=== PATIENT | female | born 1940 | race Caucasian/White ===

== ENCOUNTER 2018-07-22 05:34 | Inpatient (IN) ==
--- NOTE | 2018-07-22 06:13 | PROVIDER DOCUMENTATION ---
HPI-General Adult - General Chief Complaint: Allergic Reaction Stated Complaint: nausea from meds for staff infection Time Seen by Provider: 07/22/18 05:45 Source: patient Allergies/Adverse Reactions: Patient Allergies Allergy/AdvReac Type Severity Reaction Status Date / Time Sulfa (Sulfonamide Allergy Unknown Verified 05/24/18 09:49 Antibiotics) [Sulfa(Sulfonamide Antibiotics)] Home Medications: Home Medication List Medication Instructions Recorded Confirmed Last Taken Type Lamotrigine [Lamictal] 200 mg PO BID 02/10/12 07/14/18 07/14/18 History Levetiracetam E.r. [Keppra Xr] 500 mg PO BID 02/10/12 07/14/18 07/14/18 History Amlodipine [Norvasc] 10 mg PO DAILY #30 tablet 02/11/12 07/14/18 07/14/18 Rx Gabapentin [Neurontin] 800 mg PO BID 01/14/13 07/14/18 07/14/18 History Prednisone 10 mg PO DAILY 08/13/14 07/14/18 07/14/18 History Fluticasone/Salmeterol [Advair 1 puff IH BID 08/23/14 07/14/18 07/14/18 History 250-50 Diskus] Metformin [Glucophage] 500 mg PO TID 08/23/14 07/14/18 07/14/18 History Hydroxychloroquine [Plaquenil] 200 mg PO BID 08/02/15 07/14/18 07/14/18 History Nabumetone [Relafen] 750 mg PO BID 08/02/15 07/14/18 07/14/18 History Aspirin [Lo-Dose Aspirin EC] 81 mg PO DAILY 09/01/16 07/14/18 07/14/18 History Clonazepam [Klonopin] 0.5 mg PO 4XDAY 09/01/16 07/14/18 07/14/18 History Escitalopram [Lexapro] 20 mg PO DAILY 09/01/16 07/14/18 07/14/18 History Fluticasone 50 Mcg Nasal [place] 1 spray YAIR DAILY 09/01/16 07/14/18 07/14/18 History [Flonase] Folic Acid 1 mg PO DAILY 09/01/16 07/14/18 07/14/18 History Losartan [Cozaar] 50 mg PO DAILY 09/01/16 07/14/18 07/14/18 History Acetaminophen 500 mg PO 4XDAY PRN PRN 7 Days #30 04/23/18 07/14/18 07/14/18 Rx tab Tramadol [Ultram] 50 mg PO Q8HR PRN 5 Days #15 tablet 04/23/18 07/14/18 07/14/18 Rx Ketorolac 0.5% Ophth Soln [Acular 1 drp LEFT EYE 4XDAY PRN PRN #1 05/05/18 07/14/18 07/14/18 Rx 0.5% Ophth Soln] bottle Methotrexate 2.5 mg PO DIRECTED 05/24/18 07/14/18 07/11/18 History Hydrocodone/Acetaminophen [[place] 1 ea PO Q6H PRN PRN #6 tab 06/27/18 07/14/18 07/14/18 Rx 5-325 Tablet] Clindamycin [Cleocin] 150 mg PO Q6HR #30 cap 07/14/18 Unknown Rx Doxycycline [Vibramycin] 100 mg PO BID 07/14/18 07/14/18 Unknown History - History of Present Illness -Gen Adult Nature of Presenting Problems: Pt presents with ap, diffuse, comes and goes, pt was seen here approximately one week ago and diagnosed with abdominal wall cellulitis and started on abx, pt now feels weak, nausea, pt is poor historian and is unable to articulate why she decided to come to the ED, pt denies f/c, lawrence, cp, sob, cough, vomiting, diarrhea, pt is lying in bed in no acute distress. Location of Pain/Injury: reports: abdomen Pain Radiation: reports: no radiation Quality of Pain: reports: sharp Severity: reports: moderate Onset/Duration: reports: 6 days ago Timing: reports: still present Context/Activities at Onset: reports: none Modifying Factors: improves with: nothing Associated Symptoms: reports: nausea, weakness Similar Symptoms Previously?: Yes Recently seen or treated by another doctor?: Yes Review of Systems - Adult - REVIEW OF SYSTEMS - ADULT Constitutional: reports: no symptoms reported Eyes: reports: no symptoms reported Ears, Nose, Mouth & Throat: reports: no symptoms reported Cardiovascular: reports: no symptoms reported Respiratory: reports: no symptoms reported Gastrointestinal: reports: see HPI Genitourinary: reports: no symptoms reported Musculoskeletal: reports: no symptoms reported Integumentary: reports: no symptoms reported Neurological: reports: no symptoms reported Psychiatric: reports: no symptoms reported Endocrine: reports: no symptoms reported Hematologic/Lymphatic: reports: no symptoms reported Allergic/Immunologic: reports: no symptoms reported All Other Systems: Reviewed and Negative Past History - Adult - PAST MEDICAL HISTORY-ADULT Review of Records: reports: Old Records Reviewed, Nursing Assessment Review, Medications Reviewed, Social history reviewed & non-contributory. Major Childhood Illnesses: reports: denies history Cardiovascular: reports: A-Fib, HTN, hyperlipidemia Respiratory: reports: asthma Gastrointestinal: reports: denies history Obstetrical/Gynecological: reports: denies history Genitourinary: reports: denies history Musculoskeletal: reports: arthritis (RA), other (RA; osteoarthritis; frequent falls) Neurological: reports: Seizures/Epilepsy (r/t brain sx) Psychiatric: reports: anxiety, depression Endocrine/Immune: reports: Diabetes Other Conditions: reports: denies history - PRIOR SURGERIES/PROCEDURES Surgical/Procedure History: reports: appendectomy, hysterectomy, orthopedic (extremity) (total knee, shoulders), joint replacement (knee), back/neck (back sx), other (brain surgery; bladder) - IMMUNIZATION STATUS Childhood Immunizations: See Nurse Assessment Flu Vaccine: See Nurse Assessment - FAMILY HISTORY Family History: reviewed, not pertinent Physical Exam-General - PHYSICAL EXAM-ADULT Initial Vital Signs Reviewed: Yes - CONSTITUTIONAL General Appearance: appears well - EYES Eyes: PERRL/EOMI - HEAD, EARS, NOSE, MOUTH & THROAT HENMT: normocephalic/atraumatic - NECK Neck: normal inspection - RESPIRATORY Respiratory: no respiratory distress, no accessory muscle use - CARDIOVASCULAR Cardiovascular: regular rate, rhythm - GASTROINTESTINAL (ABDOMEN) Abdominal Exam: non tender, soft - LYMPHATIC Lymphatic: no adenopathy - MUSCULOSKELETAL Back Exam: normal inspection Extremity: normal range of motion - SKIN Integumentary: normal color - NEUROLOGIC Neurologic: equipment mechanic II-XII nml as tested - PSYCHIATRIC Psych/Mental Status: normal mood/affect Progress - PLAN OF CARE/RESULTS Progress/Plan/Lab Results: Vital Signs - 8 hr 07/22/18 05:49 Temperature 98.3 F Pulse Rate 68 Respiratory Rate 15 Blood Pressure 187/91 O2 Sat by Pulse Oximetry 97 Orders Category Date Time Status CT ABD/PELVIS W/IV CONT ONLY [CT] Stat Exams 07/22/18 06:09 Ordered cxr [CHEST-1 VIEW] [RAD] Stat Exams 07/22/18 06:09 Ordered CBC WITH ELECTRONIC DIFF [HEME] Stat Lab 07/22/18 06:08 Uncollected COMPREHENSIVE METABOLIC PANEL [CHEM] Stat Lab 07/22/18 06:08 Uncollected LACTATE, PLASMA [CHEM] Stat Lab 07/22/18 06:08 Uncollected LIPASE [CHEM] Stat Lab 07/22/18 06:08 Uncollected PRO B-NATRIURETIC PEPTIDE Stat Lab 07/22/18 06:08 Uncollected TROPONIN T Stat Lab 07/22/18 06:08 Uncollected UA [URINALYSIS] [URINALYSIS] Stat Lab 07/22/18 06:08 Uncollected EKG [EKG] Stat Ther 07/22/18 06:09 Ordered Departure - Departure Referrals and Follow-Ups: Mario Sibley MD [Primary Care Provider] -
--- NOTE | 2018-07-22 06:52 | Diag Imaging Result Doc PS360 ---
EXAM: CHEST-1 VIEW HISTORY: weakness TECHNIQUE: Chest single view COMPARISON: 05/24/2018 FINDINGS: The lungs are well expanded. The heart is not enlarged. The vessels are not distended. There are no infiltrates. No effusion identified. There are scattered granuloma. There has been orthopedic replacement of each shoulder. IMPRESSION: Stable chest Electronically signed by Shine Miller 07/22/2018 6:50 AM
[2018-07-22 07:16] LABS: BASO# 0.02 X1000 (0.0-0.2); BASO% 0.2 % (0.0-0.8); EOS% 1.2 % (0.0-10.0); HEMATOCRIT 41.7 % (37.0-47.0); HEMOGLOBIN 15.1 g/dL (12.0-16.0); IMM GRAN# 0.04 X1000 (0.0-0.04); IMM GRAN% 0.5 % (0.0-0.5); LYMPH# 1.96 X1000 (1.2-3.4); LYMPH% 23.1 % (20.5-51.1); MCH 32.5 PG (27-31); MCHC 36.2 g/dL (33-37); MCV 89.7 FL (81-99); MONO% 10.6 % (1.7-9.3); MPV 10.4 FL (7.4-10.4); NEUT# 5.48 X1000 (1.4-6.5); NEUT% 64.4 % (42.2-75.2); PLT 235 X1000 (130-400); RBC 4.65 XMIL (4.2-5.4); RDW 12.4 % (11.5-14.5)
[2018-07-22 07:37] LABS: AGAP 15; ALB/GLOB RATIO 1.7; ALBUMIN 4.3 g/dL (3.5-5.0); ALKALINE PHOSPHATASE 92 U/L (32-104); BUN 4 mg/dL (8-22); CALCIUM 8.8 mg/dL (8.8-10.2); CHLORIDE 86 mmol/L (98-107); COSMO 247; CREATININE 0.3 mg/dL (0.5-0.9); ESTIMATED GFR > 60; GLUCOSE 107 mg/dL (70-104); GOT 26 U/L (10-30); GPT 18 U/L (10-36); LIPASE 23 U/L (13-60); POTASSIUM 3.4 mmol/L (3.5-5.1); SODIUM 124 mmol/L (136-145); TCO2 23 mmol/L (25-35); TOTAL BILIRUBIN 0.78 mg/dL (0.20-1.00); TOTAL PROTEIN 6.9 g/dL (6.3-8.3)
--- NOTE | 2018-07-22 07:37 | Diag Imaging Result Doc PS360 ---
EXAM: CT ABD/PELVIS W/IV CONT ONLY HISTORY: colitis TECHNIQUE: CT abdomen and pelvis with intravenous contrast. Radiation warning. This patient has a large number of CTs in the past several years. A different imaging modality is recommended in the future. COMPARISON: 03/22/2017. FINDINGS: No calcified gallstones or adjacent inflammation. There are multiple surgical clips at the gastroesophageal junction. No focal hepatic abnormality. Scattered hepatic and splenic granuloma. No splenomegaly. Normal pancreas and adrenal glands. There is a duodenal diverticulum. No renal mass. No hydronephrosis. No aortic aneurysm. Severe atherosclerosis. There has been extensive surgery to the lumbar spine. The bowel loops are not dilated. The appendix is not identified. There are multiple pieces of metal in the lower abdomen and upper pelvis. The urinary bladder is distended and is normal. The uterus has been removed. No pelvic mass. There are scattered colonic diverticula. IMPRESSION: 1.Severe atherosclerosis 2.Diverticulosis 3.Hysterectomy This exam was performed using automated exposure control, adjustment of mA or kV according to patient size, and/or use of iterative reconstruction technique. Electronically signed by Shine Miller 07/22/2018 7:35 AM
[2018-07-22 07:52] LABS: URINE SOURCE CLEAN CATCH
[2018-07-22 08:00] LABS: BILIRUBIN URINE NEGATIVE (NEGATIVE); BLOOD URINE NEGATIVE (NEGATIVE); COLOR STRAW; GLUCOSE URINE NEGATIVE (NEGATIVE); KETONE URINE 10 mg/dL (NEGATIVE); LEUKOCYTES URINE NEGATIVE (NEGATIVE); NITRITE URINE NEGATIVE (NEGATIVE); PROTEIN URINE NEGATIVE (NEGATIVE); SP GRAVITY URINE 1.021; TURBIDITY URINE CLEAR (CLEAR); UROBILINOGEN URINE NORMAL (NORMAL)
[2018-07-22 08:01] LABS: UR EPITHELIAL CELLS <10 /HPF (<10); URINE BACTERIA NEGATIVE /HPF; URINE RBC <10 /HPF (<10); URINE WBC <10 /HPF (<10)
[2018-07-22] MEDS ORDERED: ZOFRAN IV ONE (09:06)
[2018-07-22] MEDS ORDERED: ZOFRAN IV PRN (11:48)
[2018-07-22] MEDS ORDERED: VANCOMYCIN IV PER PHARMACY MISC SCH (12:00)
[2018-07-22] MEDS: LEVAQUIN 750 MG/D5W 750 MG/150 ML IVPB IV SCH (12:27)
[2018-07-22] MEDS: NS 1,000 ML IV SCH (12:27)
[2018-07-22] MEDS: KLONOPIN PO SCH ×3 (12:28→20:12)
[2018-07-22] MEDS: NORCO-5 PO PRN ×2 (12:28→18:39)
[2018-07-22] MEDS: GLUCOPHAGE PO SCH ×2 (12:28→18:00)
[2018-07-22] MEDS ORDERED: VANCOMYCIN 1,800 MG in NS 250 ML IV ONE (13:00)
--- NOTE | 2018-07-22 13:43 | HISTORY AND PHYSICAL ---
HISTORY OF PRESENT ILLNESS: Ms. Tyson is a 77-year-old white female, a patient of Dr. Sibley, known case of rheumatoid arthritis, diabetes, hypertension, seizure disorder, severe anxiety and depression. She comes to the emergency room with change in mental status. She was very confused. It was found that she had hyponatremia, sodium was 124, and she was admitted to the hospital. About 2 weeks ago she had a possible spider bite, with cellulitis on the abdominal wall, and was treated with clindamycin and doxycycline. She had severe difficulty in tolerating clindamycin, has been staying nauseated since then. PAST MEDICAL AND SURGICAL HISTORY: Her past medical illnesses reveal severe rheumatoid arthritis for which she sees Dr. Valle, and has been on multiple medications including Plaquenil, prednisone and methotrexate. She had bilateral shoulder replacement as well as right knee replacement and hysterectomy. She has severe arthritis in the left knee, which she says is almost [id number]. MEDICATIONS: Her medication list also includes Relafen, metformin, losartan, levofloxacin, levetiracetam for seizure disorder, lamotrigine for seizure disorder, hydroxychloroquine, hydrocodone, gabapentin, fluticasone, as well as inhaler for asthma. SOCIAL HISTORY: She is a nonsmoker. Does not drink. ALLERGIES: Sulfa drugs. REVIEW OF SYSTEMS: She is very confused at the present time, says she is very nauseated. PHYSICAL EXAMINATION: GENERAL: The patient is confused. VITAL SIGNS: Temperature normal, pulse of 60 per minute, respiratory rate 18 per minute, blood pressure 181/76. HEENT: Head normocephalic. Pupils PERRLA. Fundus examination not done. ENT examination unremarkable. NECK: Supple. JVP normal. There is no evidence of lymphadenopathy or thyroid enlargement. EXTREMITIES: No pedal edema, calf tenderness, anemia, cyanosis or clubbing. Pedal pulses well felt. BREAST: Normal. CHEST: Normal to inspection. LUNGS: Clear on auscultation. PMI in the normal position. HEART: Heart sounds normal. No murmur, gallop or rub noted. ABDOMEN: The abdomen reveals some cellulitis in the right lower quadrant, and there is a small puncture wound over the abdominal wall in the right lower quadrant. There is no guarding, rigidity, free fluid, masses, or organomegaly. Bowel sounds are heard. RECTAL: Deferred. ROOFING MACHINE TENDER: Higher functions, patient is confused, disoriented. Cranial nerves normal. Motor and sensory system examination unremarkable. Deep tendon reflexes normal. Plantars downgoing. Skull and spine examination normal for age. No cerebellar signs or signs of meningeal irritation. Locomotor exam unremarkable. SKIN: Unremarkable. IMPRESSION: 1. Severe mental confusion. 2. Hyponatremia. 3. Cellulitis involving the abdominal wall. 4. History of rheumatoid arthritis. 5. Diabetes. 6. Hypertension. 7. Seizure disorder. 8. Anxiety with depression. PLAN: We will start her on some IV antibiotics, get the cultures, and start her on normal saline to help with hyponatremia. cc: Chilango Gonzalez MD
[2018-07-22] MEDS: BACTROBAN OINTMENT TOP SCH ×2 (15:24→20:13)
[2018-07-22] MEDS: ULTRAM PO PRN (20:12)
[2018-07-22] MEDS: NEURONTIN PO SCH (20:13)
[2018-07-22] MEDS: RELAFEN PO SCH (20:13)
[2018-07-22] MEDS: KEPPRA XR PO SCH (20:13)
[2018-07-22] MEDS: LAMICTAL PO SCH (20:13)
[2018-07-22] MEDS: PLAQUENIL PO SCH (20:13)
[2018-07-23] MEDS: NS 1,000 ML IV SCH ×3 (01:15→17:07)
[2018-07-23] MEDS: NORCO-5 PO PRN ×4 (01:44→23:07)
[2018-07-23] MEDS: ULTRAM PO PRN ×3 (04:51→20:14)
[2018-07-23] MEDS: TYLENOL PO PRN (04:51)
[2018-07-23 07:06] LABS: URINE SOURCE CATH
[2018-07-23 07:12] LABS: BILIRUBIN URINE NEGATIVE (NEGATIVE); BLOOD URINE NEGATIVE (NEGATIVE); COLOR STRAW; GLUCOSE URINE NEGATIVE (NEGATIVE); KETONE URINE NEGATIVE (NEGATIVE); LEUKOCYTES URINE NEGATIVE (NEGATIVE); NITRITE URINE NEGATIVE (NEGATIVE); PH URINE 6.5; PROTEIN URINE NEGATIVE (NEGATIVE); TURBIDITY URINE CLEAR (CLEAR); UROBILINOGEN URINE NORMAL (NORMAL)
[2018-07-23 07:13] LABS: UR EPITHELIAL CELLS <10 /HPF (<10); URINE BACTERIA NEGATIVE /HPF; URINE RBC <10 /HPF (<10); URINE WBC <10 /HPF (<10)
[2018-07-23 07:16] LABS: BASO# 0.03 X1000 (0.0-0.2); BASO% 0.4 % (0.0-0.8); EOS# 0.09 X1000 (0.0-0.7); EOS% 1.3 % (0.0-10.0); HEMATOCRIT 40.4 % (37.0-47.0); HEMOGLOBIN 14.5 g/dL (12.0-16.0); IMM GRAN# 0.03 X1000 (0.0-0.04); IMM GRAN% 0.4 % (0.0-0.5); LYMPH# 2.32 X1000 (1.2-3.4); LYMPH% 32.5 % (20.5-51.1); MCH 32.7 PG (27-31); MCHC 35.9 g/dL (33-37); MONO# 0.83 X1000 (0.11-0.59); MONO% 11.6 % (1.7-9.3); MPV 10.2 FL (7.4-10.4); NEUT# 3.83 X1000 (1.4-6.5); NEUT% 53.8 % (42.2-75.2); PLT 257 X1000 (130-400); RBC 4.44 XMIL (4.2-5.4); RDW 12.5 % (11.5-14.5); WBC 7.13 X1000 (4.8-10.8)
[2018-07-23 07:21] LABS: AGAP 12; BUN 3 mg/dL (8-22); CALCIUM 8.5 mg/dL (8.8-10.2); CHLORIDE 93 mmol/L (98-107); COSMO 248; CREATININE 0.4 mg/dL (0.5-0.9); ESTIMATED GFR > 60; GLUCOSE 93 mg/dL (70-104); POTASSIUM 3.4 mmol/L (3.5-5.1); SODIUM 125 mmol/L (136-145); TCO2 20 mmol/L (25-35)
[2018-07-23] MEDS: KEPPRA XR PO SCH ×2 (08:08→20:13)
[2018-07-23] MEDS: KLONOPIN PO SCH ×4 (08:08→20:13)
[2018-07-23] MEDS: FLONASE NAS SCH (08:08)
[2018-07-23] MEDS: LAMICTAL PO SCH ×2 (08:08→20:13)
[2018-07-23] MEDS: PLAQUENIL PO SCH ×2 (08:09→20:14)
[2018-07-23] MEDS: RELAFEN PO SCH ×2 (08:09→20:20)
[2018-07-23] MEDS: NEURONTIN PO SCH ×2 (08:09→20:13)
[2018-07-23] MEDS: COZAAR PO SCH (08:10)
[2018-07-23] MEDS: LEXAPRO PO SCH (08:10)
[2018-07-23] MEDS: PREDNISONE PO SCH (08:10)
[2018-07-23] MEDS: GLUCOPHAGE PO SCH ×3 (08:10→17:03)
[2018-07-23] MEDS: FOLIC ACID PO SCH (08:10)
[2018-07-23] MEDS: ASPIRIN EC PO SCH (08:14)
--- NOTE | 2018-07-23 09:17 | Diag Imaging Result Doc PS360 ---
EXAM: CHEST-2 VIEWS INDICATION: routine TECHNIQUE: 2 views COMPARISON: 07/22/2018 FINDINGS: The lungs are stable and essentially clear. No focal infiltrates are identified. There is no discrete pleural fluid collection or pneumothorax. The cardiomediastinal silhouette and central vasculature are grossly unremarkable. IMPRESSION: Stable chest with no definite acute pathology by plain radiograph. Electronically signed by Sami Rendon 07/23/2018 9:15 AM
[2018-07-23] MEDS: LEVAQUIN 750 MG/D5W 750 MG/150 ML IVPB IV SCH (12:08)
--- NOTE | 2018-07-23 12:24 | PROGRESS NOTE ---
DATE: 07/23/2018 Ms. Tyson is doing better, even though her sodium has gone up only one point to 125. She is much more alert, and her talking makes a lot of sense. We are going to repeat the sodium again today. Cellulitis is improving. Her overall condition has improved. We are going to repeat the sodium again tomorrow and then decide if she needs any further salt solutions. She is getting IV vancomycin as well as Levaquin. -8 cc: Chilango Gonzalez MD
[2018-07-23] MEDS: VANCOMYCIN 1,250 MG in NS 250 ML IV SCH (15:19)
[2018-07-23] MEDS: BACTROBAN OINTMENT TOP SCH ×2 (15:20→20:14)
[2018-07-24] MEDS: ULTRAM PO PRN ×3 (04:05→21:31)
[2018-07-24] MEDS: NS 1,000 ML IV SCH ×2 (04:08→12:04)
--- NOTE | 2018-07-24 04:16 | PROGRESS NOTE ---
DATE: 07/22/2018 SUBJECTIVE: Ms Tyson is somewhat confused. She had acute mental status change. OBJECTIVE: She has cellulitis over the abdominal wall. Hyponatremia, sodium was 124. Overall condition is unchanged. She has severe rheumatoid arthritis. PLAN: We will start some IV fluids on her as well as get the cultures from the abdominal wall. -1 cc: Chilango Gonzalez MD
[2018-07-24 07:32] LABS: AGAP 12; BUN 4 mg/dL (8-22); CALCIUM 8.4 mg/dL (8.8-10.2); CHLORIDE 102 mmol/L (98-107); COSMO 272; CREATININE 0.4 mg/dL (0.5-0.9); ESTIMATED GFR > 60; GLUCOSE 88 mg/dL (70-104); POTASSIUM 3.4 mmol/L (3.5-5.1); SODIUM 138 mmol/L (136-145); TCO2 24 mmol/L (25-35)
--- NOTE | 2018-07-24 08:28 | EKG Report ---
Test Performed on : 07/22/2018 08:28:22 AM Test Reason : weakness Blood Pressure : / mmHG Vent. Rate : 063 BPM Atrial Rate : 063 BPM P-R Int : 130 ms QRS Dur : 084 ms QT Int : 480 ms P-R-T Axes : 081 000 052 degrees QTc Int : 491 ms Normal sinus rhythm. Prolonged QT Abnormal ECG When compared with ECG of 05-MAY-2018 11:33, No significant change was found Unconfirmed Result
[2018-07-24] MEDS ORDERED: KLOR-CON PO ONE (08:33)
[2018-07-24] MEDS: FLONASE NAS SCH (10:23)
[2018-07-24] MEDS: RELAFEN PO SCH ×2 (10:27→21:26)
[2018-07-24] MEDS: LAMICTAL PO SCH ×2 (10:27→21:28)
[2018-07-24] MEDS: NEURONTIN PO SCH ×2 (10:27→21:29)
[2018-07-24] MEDS: LEXAPRO PO SCH (10:27)
[2018-07-24] MEDS: PREDNISONE PO SCH (10:33)
[2018-07-24] MEDS: FOLIC ACID PO SCH (10:33)
[2018-07-24] MEDS: KEPPRA XR PO SCH ×2 (10:33→21:28)
[2018-07-24] MEDS: GLUCOPHAGE PO SCH ×3 (10:33→18:28)
[2018-07-24] MEDS: COZAAR PO SCH (10:33)
[2018-07-24] MEDS: PLAQUENIL PO SCH ×2 (10:33→21:29)
[2018-07-24] MEDS: KLONOPIN PO SCH ×4 (10:33→21:31)
[2018-07-24] MEDS: NORCO-5 PO PRN ×3 (10:34→23:43)
[2018-07-24] MEDS: ASPIRIN EC PO SCH (10:34)
[2018-07-24] MEDS: BACTROBAN OINTMENT TOP SCH ×2 (10:35→21:31)
[2018-07-24] MEDS ORDERED: BLISTEX MEDICATED BERRY LIP BALM TOP PRN (13:26)
[2018-07-24] MEDS: LEVAQUIN 750 MG/D5W 750 MG/150 ML IVPB IV SCH (13:59)
[2018-07-24] MEDS: VANCOMYCIN 1,250 MG in NS 250 ML IV SCH (16:01)
--- NOTE | 2018-07-24 19:32 | PROGRESS NOTE ---
DATE: 07/24/2018 SUBJECTIVE: Interval history was reviewed. A 77-year-old white female admitted to the hospital on 07/22/2018 with right abdominal cellulitis and belly pain. The patient was receiving IV antibiotics. The patient has multiple complaints with chronic pain. PAST MEDICAL HISTORY: Reviewed. PAST SURGICAL HISTORY: Reviewed. MEDICINES: Were reviewed. ALLERGIES: Sulfa. EXAMINATION: Vital Signs: Temp is 97, pulse 60, blood pressure 150/63. HEENT: Within normal limits. Neck: Supple. Chest: Clear. Heart: Heart sounds are regular. Belly is soft, nontender. Right abdominal cellulitis improving with localized ecthyma lesions noted. The patient has generalized osteoarthritic changes noted. LABS: CBC: White cell count 7.1, hematocrit 40, platelets 257,000. Sodium 138, potassium 3.4, chloride 102, BUN 4, creatinine 0.4, glucose 128. Chest x-ray: Stable chest. CT scan of the abdomen and pelvis: Severe atherosclerosis, diverticulosis. ASSESSMENT AND PLAN: 1. Right abdominal cellulitis is improving. Currently patient is on Levaquin and IV vancomycin. 2. Hyponatremia is better. Discontinue IV fluids. 3. Discontinue Duarte. 4. Hypokalemia. Replace the potassium. 5. Type 2 diabetes, on metformin. 6. Continue home medications. For chronic pain just tramadol as needed and repeat the labs in the morning. Will follow up. LEVEL OF DOCUMENTATION: 35 minutes. cc: MD Chilango Pina MD
[2018-07-24] MEDS: TYLENOL PO PRN (21:30)
[2018-07-25] MEDS: TYLENOL PO PRN ×2 (05:07→20:34)
[2018-07-25] MEDS: NORCO-5 PO PRN ×2 (05:11→18:41)
[2018-07-25 07:07] LABS: HEMATOCRIT 41.8 % (37.0-47.0); HEMOGLOBIN 14.5 g/dL (12.0-16.0); MCHC 34.7 g/dL (33-37); MPV 10.4 FL (7.4-10.4); RBC 4.4 XMIL (4.2-5.4); RDW 13.1 % (11.5-14.5); WBC 7.95 X1000 (4.8-10.8)
[2018-07-25 07:28] LABS: AGAP 14; BUN 7 mg/dL (8-22); CHLORIDE 100 mmol/L (98-107); COSMO 275; CREATININE 0.5 mg/dL (0.5-0.9); ESTIMATED GFR > 60; GLUCOSE 148 mg/dL (70-104); POTASSIUM 3.3 mmol/L (3.5-5.1); SODIUM 137 mmol/L (136-145); TCO2 23 mmol/L (25-35)
[2018-07-25] MEDS: LAMICTAL PO SCH ×2 (08:40→20:32)
[2018-07-25] MEDS: GLUCOPHAGE PO SCH ×3 (08:41→16:42)
[2018-07-25] MEDS: NEURONTIN PO SCH ×2 (08:41→20:32)
[2018-07-25] MEDS: KEPPRA XR PO SCH ×2 (08:41→20:34)
[2018-07-25] MEDS: PLAQUENIL PO SCH ×2 (08:41→20:34)
[2018-07-25] MEDS: RELAFEN PO SCH ×2 (08:41→20:32)
[2018-07-25] MEDS: KLONOPIN PO SCH ×4 (08:41→20:34)
[2018-07-25] MEDS: LEXAPRO PO SCH (08:42)
[2018-07-25] MEDS: PREDNISONE PO SCH (08:43)
[2018-07-25] MEDS: COZAAR PO SCH (08:43)
[2018-07-25] MEDS: POTASSIUM CHLORIDE 20 MEQ/SWI 20 MEQ/100 ML IVPB IV SCH ×2 (08:44→14:52)
[2018-07-25] MEDS: FLONASE NAS SCH (08:54)
[2018-07-25] MEDS: BACTROBAN OINTMENT TOP SCH ×2 (08:54→20:36)
[2018-07-25] MEDS: FOLIC ACID PO SCH (08:55)
[2018-07-25] MEDS: ASPIRIN EC PO SCH (08:57)
[2018-07-25] MEDS: LEVAQUIN 750 MG/D5W 750 MG/150 ML IVPB IV SCH (13:17)
[2018-07-25] MEDS: VANCOMYCIN 1,600 MG in NS 250 ML IV SCH (16:42)
[2018-07-25] MEDS: ULTRAM PO PRN (20:35)
--- NOTE | 2018-07-25 21:39 | PROGRESS NOTE ---
DATE: 07/25/2018 SUBJECTIVE: The patient is all the time in pain. Wants the referral for pain. In terms of the cellulitis is improving, the patient is eating well. REVIEW OF SYSTEMS: None reported. EXAMINATION: Vital Signs: Temperature is 98.6, pulse is 60, blood pressure 157/65. HEENT: Within normal limits. Neck: Supple. No lymphadenopathy. Chest: Bilateral air entry. Heart: Sounds are regular. Abdomen: Belly is soft and nontender. Good bowel sounds. Extremities: Significant osteoarthritic changes. Nonfocal. LABS: Blood cultures, wound cultures are negative. ASSESSMENT AND PLAN: 1. Right abdomen cellulitis with ecthyma getting better. Continue present IV antibiotics. 2. Hyponatremia, better. 3. Hypokalemia. Replace the potassium. 4. Out of the bed with physical therapy. If she continues to improve, will discharge tomorrow and the patient is interested in chronic pain management. We will refer to [facility] as an outpatient. LEVEL OF DOCUMENTATION: 25 minutes. cc: MD Chilango Pina MD
[2018-07-26] MEDS: NORCO-5 PO PRN ×2 (03:42→10:24)
[2018-07-26] MEDS: ULTRAM PO PRN ×2 (05:17→14:16)
[2018-07-26] MEDS ORDERED: METHOTREXATE PO SCH (09:00)
[2018-07-26] MEDS: FOLIC ACID PO SCH (10:24)
[2018-07-26] MEDS: RELAFEN PO SCH (10:24)
[2018-07-26] MEDS: COZAAR PO SCH (10:24)
[2018-07-26] MEDS: PREDNISONE PO SCH (10:24)
[2018-07-26] MEDS: LEXAPRO PO SCH (10:25)
[2018-07-26] MEDS: KEPPRA XR PO SCH (10:25)
[2018-07-26] MEDS: KLONOPIN PO SCH ×2 (10:25→14:22)
[2018-07-26] MEDS: PLAQUENIL PO SCH (10:25)
[2018-07-26] MEDS: GLUCOPHAGE PO SCH ×2 (10:25→12:14)
[2018-07-26] MEDS: NEURONTIN PO SCH (10:25)
[2018-07-26] MEDS: ASPIRIN EC PO SCH (10:25)
[2018-07-26] MEDS: LAMICTAL PO SCH (10:25)
[2018-07-26] MEDS: FLONASE NAS SCH (10:26)
[2018-07-26] MEDS: BACTROBAN OINTMENT TOP SCH (10:26)
[2018-07-26] MEDS: VANCOMYCIN 1,600 MG in NS 250 ML IV SCH (10:31)
[2018-07-26 12:04] VITALS: BP 166/72
[2018-07-26] MEDS: LEVAQUIN 750 MG/D5W 750 MG/150 ML IVPB IV SCH (12:04)
--- NOTE | 2018-07-29 18:38 | DISCHARGE SUMMARY ---
ADMISSION DATE: 07/22/2018 DISCHARGE DATE: 07/26/2018 DISCHARGING DIAGNOSIS: Right-sided abdominal cellulitis with localized ecthyma. SECONDARY DIAGNOSES: 1. Rheumatoid arthritis/osteoarthritis under the care of Dr. Valle. 2. Type 2 diabetes. 3. Hypertension. 4. Chronic anxiety/depression. 5. History of paroxysmal atrial fibrillation. 6. History of seizures due to craniotomy for meningioma. 7. Hypothyroidism. 8. Incontinence of urine. 9. Status post left shoulder replacement. 10. Generalized osteoarthritis with chronic pain. 11. Dehydration with hyponatremia. BRIEF HISTORY: Please see the H and P that was done by Dr. Gonzalez. In brief, she is a 77-year-old white female with the above problems who lives in an assisted living facility. Came in with pain and swelling in the right side of the abdomen with a localized insect bite and surrounding inflammation. She was also found to have dehydration with hyponatremia, and the patient was admitted to the hospital for IV fluids and IV antibiotics with vancomycin and Zosyn. Antibiotics controlled resolution of cellulitis, as well as dehydration. There was a localized small scab that was removed, and the wound was slowly healing well. The patient was given instruction for local Bactroban ointment and to continue outpatient antibiotics with doxycycline. RADIOLOGY PROCEDURES: CT scan of the abdomen and pelvis: Severe atherosclerosis, diverticulosis, hysterectomy, severe extensive surgery to the lumbar spine. Microbiology: Gram stain wound cultures were negative. Blood cultures were negative. LABS: CBC at time of discharge: White cell count 7.9, hematocrit 41.8, platelets 254. Sodium 137, potassium 3.3, chloride 100, BUN 7 ,creatinine 0.5, glucose 148. Cardiac enzymes and proBNP were normal. Urinalysis was clear. EKG: Normal sinus. Nothing acute. DISCHARGE INSTRUCTIONS: 1. Keppra 500 p.o. b.i.d., Lamictal 200 p.o. b.i.d., amlodipine 10 daily, Neurontin 800 b.i.d., Advair 250/50 one puff b.i.d., metformin 500 p.o. t.i.d., Plaquenil 200 p.o. b.i.d., folic acid 1 mg daily, Lexapro 20 daily, Flonase as needed, aspirin 81 mg daily, Cozaar 50 daily, Klonopin 0.5 four times daily, tramadol 50 every 8 hours as needed. Will hold the methotrexate until she sees Dr. Valle. Doxycycline 100 p.o. b.i.d. 2. Follow up in my office in 2 weeks and follow up with Dr. Valle for the chronic dermatological problem. Follow up for chronic pain with the [facility]. 3. Will arrange outpatient home health care. cc: MD Chilango Pina MD
== END 2018-07-26 16:45 | disposition home health service (06) | DRG 603 ==
LOC: SUPCPDRO → ED 05:34 → 3N 09:31
PROVIDERS: ADMIT Internal Medicine; ATTEND Internal Medicine
CPT/HCPCS: 71010; 71020; 71045; 71046; 74177; 80048; 80053; 80202; 81001; 82948; 83605; 83690; 83880; 84484; 85025; 85027; 87040; 87070; 93005; 96374; 99285; A9270; J1956; J2405; J3370; J3480; J7030; J7050; J7506; J7512; J8610; Q9967; XXXXX

== ENCOUNTER 2018-09-05 01:58 | Inpatient (IN) ==
--- NOTE | 2018-08-30 17:40 | EKG Report ---
Test Performed on : 08/30/2018 5:11:35 PM Test Reason : PAT Blood Pressure : / mmHG Vent. Rate : 126 BPM Atrial Rate : 126 BPM P-R Int : 158 ms QRS Dur : 072 ms QT Int : 306 ms P-R-T Axes : 065 -17 058 degrees QTc Int : 443 ms Sinus tachycardia. Low voltage QRS Cannot rule out Anterior infarct , age undetermined Abnormal ECG When compared with ECG of 22-JUL-2018 08:28, (Unconfirmed) Vent. rate has increased BY 63 BPM Minimal criteria for Anterior infarct are now present Confirmed by Carlita STATON, Singh Kinsey ([id number]) on 08/31/2018 4:19:26 PM
[2018-08-30 17:56] LABS: BASO# 0.03 X1000 (0.0-0.2); BASO% 0.3 % (0.0-0.8); EOS# 0.09 X1000 (0.0-0.7); HEMATOCRIT 42.9 % (37.0-47.0); HEMOGLOBIN 14.6 g/dL (12.0-16.0); LYMPH# 2.71 X1000 (1.2-3.4); LYMPH% 30.7 % (20.5-51.1); MCH 33.8 PG (27-31); MCV 99.3 FL (81-99); MONO# 0.89 X1000 (0.11-0.59); MONO% 10.1 % (1.7-9.3); MPV 10.1 FL (7.4-10.4); NEUT% 57.9 % (42.2-75.2); PLT 282 X1000 (130-400); RBC 4.32 XMIL (4.2-5.4); RDW 12.8 % (11.5-14.5); WBC 8.82 X1000 (4.8-10.8)
[2018-08-30 18:04] LABS: INR 0.91
[2018-08-30 18:34] LABS: AGAP 14; BUN 10 mg/dL (8-22); CALCIUM 9.2 mg/dL (8.8-10.2); CHLORIDE 100 mmol/L (98-107); COSMO 277; CREATININE 0.6 mg/dL (0.5-0.9); ESTIMATED GFR > 60; GLUCOSE 140 mg/dL (70-104); POTASSIUM 3.5 mmol/L (3.5-5.1); SODIUM 138 mmol/L (136-145); TCO2 24 mmol/L (25-35)
[2018-08-30 22:32] LABS: URINE SOURCE CLEAN CATCH
[2018-08-30 22:52] LABS: BILIRUBIN URINE NEGATIVE (NEGATIVE); COLOR YELLOW; GLUCOSE URINE NEGATIVE (NEGATIVE); KETONE URINE NEGATIVE (NEGATIVE); SP GRAVITY URINE 1.018; TURBIDITY URINE CLEAR (CLEAR)
[2018-08-30 22:53] LABS: BLOOD URINE NEGATIVE (NEGATIVE); LEUKOCYTES URINE NEGATIVE (NEGATIVE); NITRITE URINE NEGATIVE (NEGATIVE); PH URINE 6.5; PROTEIN URINE NEGATIVE (NEGATIVE); UR EPITHELIAL CELLS <10 /HPF (<10); URINE BACTERIA NEGATIVE /HPF; URINE RBC <10 /HPF (<10); URINE WBC <10 /HPF (<10); UROBILINOGEN URINE NORMAL (NORMAL)
[2018-09-05] MEDS ORDERED: COLACE ONE (09:22)
[2018-09-05] MEDS ORDERED: PEPCID ONE (09:22)
[2018-09-05] MEDS ORDERED: REGLAN ONE (09:22)
[2018-09-05] MEDS ORDERED: LYRICA ONE (09:23)
[2018-09-05] MEDS ORDERED: KEFZOL 1 GM/D5W 1 GM/50 ML IVPB ONE (09:23)
[2018-09-05] MEDS ORDERED: LR 1,000 ML ONE (09:23)
[2018-09-05] MEDS ORDERED: DIPRIVAN 1% ONE (09:55)
[2018-09-05] MEDS ORDERED: XYLOCAINE-MPF 2% ONE (09:55)
[2018-09-05] MEDS ORDERED: VANCOMYCIN ONE (10:19)
[2018-09-05] MEDS ORDERED: TORADOL ONE (10:19)
[2018-09-05] MEDS ORDERED: DURAMORPH ONE (10:19)
[2018-09-05] MEDS ORDERED: MARCAINE 0.25% PF ONE (10:19)
[2018-09-05] MEDS ORDERED: EXPAREL 1.3% ONE (10:20)
[2018-09-05] MEDS ORDERED: CYKLOKAPRON 1,000 MG/NS 1,000 MG/100 ML IVPB ONE ×2 (10:20→11:52)
[2018-09-05] MEDS ORDERED: SODIUM CHLORIDE 0.9% ONE (10:20)
[2018-09-05] MEDS ORDERED: NEOSPORIN G.U. IRRIGANT ONE (10:20)
[2018-09-05] MEDS ORDERED: FENTANYL ONE (11:33)
[2018-09-05] MEDS ORDERED: OFIRMEV 1000 MG/ISOTONIC SOLN 1,000 MG/100 ML BOTTLE ONE (11:49)
[2018-09-05] MEDS ORDERED: ZOFRAN ONE (11:49)
[2018-09-05] MEDS ORDERED: DECADRON ONE (11:49)
[2018-09-05 12:02] LABS: URINE SOURCE CATH
[2018-09-05 12:05] LABS: BILIRUBIN URINE NEGATIVE (NEGATIVE); BLOOD URINE NEGATIVE (NEGATIVE); COLOR YELLOW; GLUCOSE URINE NEGATIVE (NEGATIVE); KETONE URINE NEGATIVE (NEGATIVE); LEUKOCYTES URINE NEGATIVE (NEGATIVE); NITRITE URINE NEGATIVE (NEGATIVE); PH URINE 6.5; PROTEIN URINE NEGATIVE (NEGATIVE); SP GRAVITY URINE 1.011; TURBIDITY URINE CLEAR (CLEAR); UROBILINOGEN URINE NORMAL (NORMAL)
[2018-09-05 12:06] LABS: UR EPITHELIAL CELLS <10 /HPF (<10); URINE BACTERIA NEGATIVE /HPF; URINE RBC <10 /HPF (<10); URINE WBC <10 /HPF (<10)
[2018-09-05] MEDS: DILAUDID ONE ×3 (12:57→23:08)
--- NOTE | 2018-09-05 13:23 | Diag Imaging Result Doc PS360 ---
EXAM: KNEE 1-2 VIEWS-LEFT INDICATION: Left total knee TECHNIQUE: 2 views COMPARISON: 06/26/2017 FINDINGS: There has been a recent left knee arthroplasty. The arthroplasty hardware is in the expected position. There is no evidence of periprosthetic fracture. Anterior skin ailin and a drainage catheter are in place. IMPRESSION: Satisfactory postoperative knee. Electronically signed by Sami Rendon 09/05/2018 1:21 PM
[2018-09-05] MEDS: NS 1,000 ML ONE ×2 (13:35→13:55)
[2018-09-05] MEDS ORDERED: MORPHINE IV PRN ×3 (15:00)
[2018-09-05] MEDS ORDERED: ZOFRAN IV PRN (15:00)
[2018-09-05] MEDS ORDERED: ZOFRAN ODT PO PRN (15:00)
[2018-09-05] MEDS: OXY IR PO PRN ×2 (16:20→18:08)
[2018-09-05] MEDS: NS 1,000 ML IV SCH (16:31)
[2018-09-05] MEDS: TYLENOL PO SCH (18:05)
[2018-09-05] MEDS: ULTRAM PO SCH ×2 (18:05→23:08)
[2018-09-05] MEDS: KEFZOL 1 GM/D5W 1 GM/50 ML IVPB IV SCH (18:27)
[2018-09-05] MEDS ORDERED: FLONASE NAS PRN (19:31)
[2018-09-05] MEDS: KLONOPIN PO SCH (22:16)
[2018-09-05] MEDS: COLACE PO SCH (23:09)
[2018-09-05] MEDS: DESYREL PO SCH (23:09)
[2018-09-05] MEDS: RELAFEN PO SCH (23:09)
[2018-09-05] MEDS: LAMICTAL PO SCH (23:10)
[2018-09-05] MEDS: KEPPRA XR PO SCH (23:10)
[2018-09-05] MEDS: PLAQUENIL PO SCH (23:10)
[2018-09-05] MEDS: NEURONTIN PO SCH (23:10)
[2018-09-06] MEDS: OXY IR PO PRN ×2 (00:51→13:13)
[2018-09-06] MEDS: TYLENOL PO SCH ×4 (01:02→20:11)
[2018-09-06] MEDS: NS 1,000 ML IV SCH ×3 (02:43→17:42)
[2018-09-06] MEDS: ULTRAM PO SCH ×4 (02:43→21:07)
[2018-09-06] MEDS: KEFZOL 1 GM/D5W 1 GM/50 ML IVPB IV SCH (02:44)
[2018-09-06 08:19] LABS: HEMATOCRIT 36.6 % (37.0-47.0); HEMOGLOBIN 12.2 g/dL (12.0-16.0)
[2018-09-06 08:46] LABS: AGAP 8; BUN 7 mg/dL (8-22); CALCIUM 8.7 mg/dL (8.8-10.2); CHLORIDE 104 mmol/L (98-107); COSMO 283; CREATININE 0.4 mg/dL (0.5-0.9); ESTIMATED GFR > 60; GLUCOSE 132 mg/dL (70-104); POTASSIUM 3.5 mmol/L (3.5-5.1); SODIUM 142 mmol/L (136-145); TCO2 30 mmol/L (25-35)
[2018-09-06] MEDS ORDERED: METHOTREXATE PO SCH (09:00)
[2018-09-06] MEDS: ASPIRIN PO SCH (09:42)
[2018-09-06] MEDS: PLAQUENIL PO SCH ×2 (09:42→20:57)
[2018-09-06] MEDS: PEPCID PO SCH (09:42)
[2018-09-06] MEDS: GLUCOPHAGE PO SCH ×3 (09:42→17:26)
[2018-09-06] MEDS: LAMICTAL PO SCH ×2 (09:43→20:56)
[2018-09-06] MEDS: NEURONTIN PO SCH ×2 (09:43→20:57)
[2018-09-06] MEDS: LEXAPRO PO SCH (09:43)
[2018-09-06] MEDS: KEPPRA XR PO SCH ×2 (09:44→20:58)
[2018-09-06] MEDS: PREDNISONE PO SCH (09:44)
[2018-09-06] MEDS: RELAFEN PO SCH ×2 (09:44→20:56)
[2018-09-06] MEDS: KLONOPIN PO SCH ×4 (09:45→21:07)
[2018-09-06] MEDS: NORVASC PO SCH (09:50)
[2018-09-06] MEDS: COLACE PO SCH ×2 (09:50→20:58)
[2018-09-06] MEDS: COZAAR PO SCH (09:50)
[2018-09-06] MEDS: FOLIC ACID PO SCH (09:51)
--- NOTE | 2018-09-06 16:34 | Diag Imaging Result Doc PS360 ---
EXAM: CHEST-1 VIEW HISTORY: REHAB TECHNIQUE: Single portable view of the chest COMPARISON: 07/23/2018 FINDINGS: Stable cardiomegaly and evidence of previous granulomatous. There are surgical clips at the GE junction. There are bilateral shoulder arthroplasties. The pulmonary vasculature is not congested. No infiltrate, effusion, or pneumothorax is appreciated. IMPRESSION: Stable cardiomegaly. No acute cardiopulmonary abnormality is identified. Electronically signed by Chloe Chan 09/06/2018 4:32 PM
[2018-09-06] MEDS: SYNTHROID PO SCH (20:10)
[2018-09-06] MEDS: DESYREL PO SCH (20:57)
[2018-09-06] MEDS: ROBAXIN PO SCH (20:57)
[2018-09-06] MEDS: TRENTAL PO SCH (20:58)
--- NOTE | 2018-09-06 21:49 | CONSULTATION ---
DATE OF CONSULTATION: 09/06/2018 HISTORY OF PRESENT ILLNESS: I was asked to follow up on postop medical care after left knee arthroplasty per Dr. Morataya. The patient is high maintenance with multiple medical problems, and she is in a lot of pain. She is planning to go for rehab. REVIEW OF SYSTEMS: Denies any chest pain, shortness of breath, other than pain from surgery and diffuse arthritic pains all over the body. She is also very emotional. Duarte was there. IV was infiltrated. PAST MEDICAL HISTORY: 1. PAF. 2. Depression with anxiety. 3. Type 2 diabetes. 4. Fibromyalgia. 5. Seronegative rheumatoid arthritis. 6. Hyperlipidemia. 7. Hypothyroidism. 8. SIADH. 9. Seizures. 10. Incontinence of urine. PAST SURGICAL HISTORY: 1. Tonsillectomy. 2. Breast lumpectomy. 3. Cystocele repair. 4. Hysterectomy. 5. Back surgery with fusion. 6. Right rotator cuff repair. 7. Right total knee arthroplasty. 8. Recent left knee arthroplasty. 9. Status post craniotomy for meningioma. 10. Carpal tunnel surgery. 11. Bilateral shoulder replacement. 12. Surgery to correct the thumbs. MEDICATIONS: 1. Keppra 1000 p.o. b.i.d. 2. Lamictal 200 p.o. b.i.d. 3. Amlodipine 10 daily. 4. Neurontin 800 b.i.d. 5. Metformin 500 t.i.d. 6. Plaquenil 200 p.o. b.i.d. 7. Folic acid 1 mg daily. 8. Lexapro 20 mg daily. 9. Flonase 1 spray every day. 10. Losartan 50 daily. 11. Klonopin 0.5 four times daily. 12. Robaxin 750 t.i.d. 13. Methotrexate 2.5 mg 6 tablets every 7 days. 14. Relafen 750 p.o. b.i.d. 15. Trazodone 50 at bedtime. 16. Synthroid 50 mcg daily. 17. Prednisone 5 mg daily. ALLERGIES: Sulfa drugs. SOCIAL HISTORY: Single. Lives in assisted living. No smoking. No drug abuse. No alcohol abuse. FAMILY HISTORY: Father of epilepsy at 30. Mother of heart problems and diabetes and renal failure. HEALTH MAINTENANCE: Flu vaccine 2017. Pneumococcal 2011. Colonoscopy 2016. REVIEW OF SYSTEMS: HEENT: No headache. No vision problem. Chronic neck pain. Cardiopulmonary: No chest pain, shortness of breath, PND, orthopnea. GI: No nausea, vomiting, abdominal pain. : Duarte catheter was placed. Extremities: Postop pain in the left knee. Neurologic: No focal symptoms or weakness. PHYSICAL EXAMINATION: Vital Signs: Temperature is 98 degrees, pulse is 111, blood pressure is stable. HEENT: Patient is twisting the neck toward the left side. Pupils equal, reactive to light. Chest: Bilateral air entry. Heart: Sounds are regular. Abdomen: Belly is soft, nontender. : Duarte placed. Extremities: Postop swelling in the left knee. Neurologic: No obvious neurological deficits. INVESTIGATIONS: CBC: White cell count 8.3, hematocrit 36. SMA 7 is normal. Chest x-ray is stable cardiomegaly, nothing acute. Bilateral shoulder arthroplasties noted. ASSESSMENT AND PLAN: 1. Postoperative status post left knee arthroplasty, stable. We will discontinue Duarte. IV is out. The patient has been on all medicines. 2. Paroxysmal atrial fibrillation, currently stable. 3. Morphine for p.r.n. pain. 4. Hypothyroidism, on Synthroid. 5. Type 2 diabetes, on metformin. 6. Reconcile all home medications. Medically stable. Discontinue Duarte in the morning, and patient is planning to go for rehab. Once again, thanks for the kind referral. cc: MD Sami Pina MD
[2018-09-07] MEDS: TYLENOL PO SCH ×3 (02:24→12:06)
[2018-09-07] MEDS: ULTRAM PO SCH ×3 (02:24→14:50)
[2018-09-07] MEDS: SYNTHROID PO SCH (06:25)
[2018-09-07 06:26] LABS: HEMATOCRIT 34.4 % (37.0-47.0); HEMOGLOBIN 11.3 g/dL (12.0-16.0)
[2018-09-07] MEDS: LEXAPRO PO SCH (08:53)
[2018-09-07] MEDS: PEPCID PO SCH (08:53)
[2018-09-07] MEDS: GLUCOPHAGE PO SCH ×2 (08:53→12:06)
[2018-09-07] MEDS: KLONOPIN PO SCH ×2 (08:53→12:06)
[2018-09-07] MEDS: NEURONTIN PO SCH (08:53)
[2018-09-07] MEDS: ROBAXIN PO SCH ×2 (08:53→14:50)
[2018-09-07] MEDS: COZAAR PO SCH (08:54)
[2018-09-07] MEDS: KEPPRA XR PO SCH (08:56)
[2018-09-07] MEDS: FOLIC ACID PO SCH (08:56)
[2018-09-07] MEDS: RELAFEN PO SCH (08:56)
[2018-09-07] MEDS: TRENTAL PO SCH ×2 (08:56→14:50)
[2018-09-07] MEDS: NORVASC PO SCH (08:56)
[2018-09-07] MEDS: LAMICTAL PO SCH (08:56)
[2018-09-07] MEDS: ASPIRIN PO SCH (08:56)
[2018-09-07] MEDS: PLAQUENIL PO SCH (08:56)
[2018-09-07] MEDS: PREDNISONE PO SCH (08:57)
[2018-09-07] MEDS: COLACE PO SCH (08:57)
[2018-09-07] MEDS: OXY IR PO PRN ×2 (09:30→12:06)
--- NOTE | 2018-09-07 13:44 | DISCHARGE SUMMARY ---
ADMISSION DATE: 09/05/2018 DISCHARGE DATE: 09/07/2018 HOSPITAL COURSE: Ms. Tyson is seen today status post total knee replacement. She underwent medical consultation per Dr. Sibley yesterday. Her confusion today has resolved. She did have some postop day 1 confusion. Currently, she appears to be surgically stable. She can be transferred to rehab today if it is okay with Dr. Sibley. She will resume all her regular medicines. We will place her on aspirin 325 daily for DVT prophylaxis. She will have [place] 10 as needed for pain every 4 hours. She can be mobilized with physical therapy full weightbearing. [place] need to be removed in 10 days. She will follow up with me upon discharge from rehab. She will return in the interim for any worsening signs or symptoms. cc: Sami Morataya MD
[2018-09-07 16:03] VITALS: BP 133/62
--- NOTE | 2018-09-08 08:37 | OPERATIVE NOTE ---
PROCEDURE DATE: 09/05/2018 PREOPERATIVE DIAGNOSIS: Degenerative joint disease, left knee. POSTOPERATIVE DIAGNOSIS: Degenerative joint disease, left knee. PROCEDURE PERFORMED: Left total knee replacement. SURGEON: Meliton Morataya MD. WAREHOUSE RECORD CLERK: CAMDEN Daniels. ANESTHESIA: General. COMPLICATIONS: None. PROCEDURE IN DETAIL: This is a 77-year-old female who presents for surgical left knee replacement. Risks, benefits, and no guarantees were discussed, and she is willing to proceed. She was taken to the operating room and satisfactory general anesthesia was obtained. Care was taken to avoid any significant manipulation of her neck due to her rheumatism. The left leg was prepped and draped in the usual sterile fashion. A time-out was taken to confirm operative site, procedure, and patient. The leg was wrapped with an Esmarch and tourniquet inflated to 300 mmHg. A midline incision was made over the front of the knee, followed by a medial quad-sparing arthrotomy. The patella was everted and resurfaced with freehand technique. The patella was subluxed laterally and the knee flexed. An intramedullary hole was made in the distal femur. Distal femoral cutting block was secured in 5 degrees of valgus and distal femoral resection made. The femur was sized to a size 5 DePuy Attune femoral implant. The 4 in 1 block was secured, and the anterior, posterior, and chamfer cuts sequentially made. The notch was created for posterior stabilized design using the provided notch guide. Any remaining osteophytes were debrided from the femur. The knee was flexed. A PCL retractor was used to protect the neurovascular bundle and reflect the femur and the tibial cutting block secured with extramedullary alignment checks. The tibial resection was made. The flexion-extension gap was roughly equal with a 5 mm spacer block. Tibia was sized to a size 5 tibial tray. Trial reduction was performed with a size 5 tibial tray, size 5 posterior stabilized femoral component, and a 5 mm thick, size 5 rotating platform posterior stabilized tibial trial. Good range of motion and stability were noted. The patella was sized to a 32 medialized dome patella. Drill holes were placed for the patella and femoral implants, and all trial implants removed. The bony surfaces were thoroughly irrigated with pulsatile lavage. Cement with a gram of vancomycin was utilized to cement a DePuy size 5 Attune rotating platform tibial baseplate, a size 5 left posterior stabilized narrow width femoral component, and a 32 medialized dome patella. Excess cement was removed with a [place] elevator. While the cement cured, the joint capsule was injected with Exparel and a Hemovac drain placed. After curing the cement, a size 5 posterior stabilized rotating platform, 5 mm thick tibial polyethylene bearing was secured into the tibial tray and the knee reduced. The patellar tracking was assessed with midline patellar tracking and good soft tissue balance from 0 to 120 degrees of motion. The arthrotomy was copiously irrigated with irrigant. The capsule was then closed over the drain with #1 Vicryl in the arthrotomy, 2-0 Vicryl in the subcutaneous, and skin ailin on the skin. Sterile dressings were applied and the tourniquet released with good return of capillary blood flow. The patient was recovered from anesthesia and transferred to the recovery room in stable condition. No intraoperative complications were noted. Instrument count and sponge count were correct at the time of closure. cc: Sami Morataya MD
--- NOTE | 2018-09-08 12:38 | ORTHOPAEDICS PROGRESS NOTE ---
DATE: 09/05/2018 SUBJECTIVE DATA: Ms. Lopez is seen on postop day 0 of her left total knee arthroplasty. She reports she is having some pain on the posterior portion of her knee at this time. She states other than that she is doing fine. OBJECTIVE DATA: Bandages are clean and dry. There is negative Homans sign. There is good capillary refill in the toes. There are good pedal pulses. Patient can flex her quadriceps muscles without difficulty. ASSESSMENT: Degenerative joint disease left knee with total knee arthroplasty. PLAN: We will plan on monitoring Ms. Lopez while she is in the hospital. We will keep her for a couple of days and then get her transferred over to rehab. I have adjusted her bandages as well to help with her comfort. Will check back on her in the morning. Dictated by CAMDEN Daniels for Sami Morataya MD cc: CAMDEN Daniels MD
== END 2018-09-07 16:10 | DRG 470 ==
LOC: SURHOLD 01:58 → 4N 11:17
PROVIDERS: ADMIT Orthopaedic Surgery Adult Reconstructive Orthopaedic Surgery; ATTEND Orthopaedic Surgery Adult Reconstructive Orthopaedic Surgery
CPT/HCPCS: 71010; 71045; 73560; 80048; 81001; 82948; 85014; 85018; 85025; 85610; 85730; 86850; 86900; 86901; 88305; 88311; 93005; 93010; 94761; 94799; 97110; 97116; 97162; 97530; A9270; C9290; J0131; J0690; J1100; J1170; J1885; J2270; J2274; J2275; J2405; J3010; J3370; J7030; J7120; J7506; J7512; J8610; Q9974; S0020; XXXXX